=== PATIENT | male | born 1955 | race Caucasian/White ===

== ENCOUNTER → 2020-07-26 10:30 | Outpatient (CLI) | payer MEDICARE, BC, SELFPAY ==
--- NOTE | 2020-07-26 | DI.RAD.S_ITS ---
PROCEDURE: XR LUMBAR SPINE 2-3V INDICATIONS: BACK PAIN TECHNIQUE: 3 views of the lumbar spine were acquired. COMPARISON: None. FINDINGS: Bones: 5 [id number] vertebrae are present. There is slightly levoscoliotic bony alignment centered at L 3 4. No vertebral body compression fractures. No suspicious bony lesions. Soft tissues: Overlying bowel gas pattern is normal. No suspicious soft tissue calcifications. IMPRESSION: Slight levoscoliosis, centered at L3-4. 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 No subluxation is associated. No compression fracture found. Dictated by: Julio Cochran M.D. on 07/26/2020 at 10:59 Approved by: Julio Cochran M.D. on 07/26/2020 at 11:00
--- NOTE | 2020-07-26 | DI.US.S_ITS ---
PROCEDURE: US ABDOMEN COMPLETE INDICATIONS: ELEVATED LFTS TECHNIQUE: Real-time scanning was performed of the abdominal and retroperitoneal organs, with image documentation. COMPARISON: None. FINDINGS: Liver: Liver is normal in size. Along the posterior aspect of the right liver, there is a nonvascular echogenic mass seen that measures up to 1.6 cm. The main portal vein demonstrates normal size at 14 mm and is patent. Gallbladder: No findings of gallstones or sludge are seen. The gallbladder wall is not thickened, measuring 3 mm or less. No specific pericholecystic fluid is seen. The sonographic Oliver sign is negative. Biliary ducts: Intrahepatic bile ducts are non-dilated. Extrahepatic bile duct caliber measures 6 mm. Normal is 6-7 mm or less in diameter, or 10 mm or less post-cholecystectomy. Pancreas: Visualized portions of the pancreas are sonographically normal. However, adjacent to the pancreas, just superior to the pancreatic head, there is a 15 x 11 x 20 mm hypoechoic nonvascular mass. Spleen: Spleen is normal in size and homogeneous in echotexture. Kidneys: Kidneys are normal in size and echotexture. Right kidney measures 10.2 cm long; left kidney measures 10.5 cm long. No hydronephrosis or nephrolithiasis. No solid masses. The renal cortex measures within normal limits for thickness. Aorta: Visualized aorta is normal in caliber at less than 3 cm. Iliacs: Proximal common iliac arteries are normal in caliber at less than 2.5 cm. IVC: Intrahepatic inferior vena cava is patent. Miscellaneous: No free abdominal fluid. IMPRESSION: Adjacent to the pancreas, there is a 2 cm hypoechoic mass seen. This may represent an enlarged lymph node versus a pancreatic head mass. When clinically appropriate, a dedicated pancreas protocol CT or MRI would be recommended (without and with contrast) for further evaluation (assuming that there is no contraindication). No significant liver abnormality is seen. A likely liver hemangioma can be seen. Attention should be paid to this focus on any future follow-up studies. The gallbladder demonstrates a normal sonographic appearance. No biliary dilatation is seen. Dictated by: Flavio Huff M.D. on 07/26/2020 at 12:13 Approved by: Flavio Huff M.D. on 07/26/2020 at 12:15
== END ==
PROVIDERS: PCP Family Medicine; Referring Provider Family Medicine; Visit Provider Family Medicine
DX: R79.89 Other specified abnormal findings of blood chemistry (principal); K86.9 Disease of pancreas, unspecified; R16.0 Hepatomegaly, not elsewhere classified; E53.8 Deficiency of other specified B group vitamins; M54.32 Sciatica, left side; M47.816 Spondylosis without myelopathy or radiculopathy, lumbar region; M47.817 Spondylosis without myelopathy or radiculopathy, lumbosacral region
CPT/HCPCS: 72100; 76700

== ENCOUNTER → 2020-08-10 09:07 | Outpatient (CLI) | payer MEDICARE, BC, SELFPAY ==
--- NOTE | 2020-08-10 | DI.MRI.S_ITS ---
PROCEDURE: MR ABDOMEN WO/W CON INDICATIONS: Other specified diseases of pancreas TECHNIQUE: Coronal HASTE, axial 2D FLASH in- and [id number]; axial breath-hold T2 FSE with fat saturation from the hepatic dome to the iliac crests. Oblique coronal thin-slice and radial thick slab HASTE through the biliary system. Dynamic axial VIBE during administration of contrast. Post-contrast coronal VIBE or 2D FLASH with fat saturation from the hepatic dome to the iliac crests. Optional diffusion weighted imaging and ADC may be performed. COMPARISON: [facility], [place], US ABDOMEN COMPLETE, 07/26/2020, 11:40. FINDINGS: Image quality: Excellent. Pancreas and biliary system: The pancreatic duct and pancreatic parenchyma at the head/uncinate process region appears normal and more peripherally within the left margin of the pancreatic duct no distension is identified. The common bile duct appears free of dilatation. The gallbladder appears normal and the biliary system appears free of calculus. Adjacent to the pancreatic head are several lymph nodes, well visualized on contrast-enhanced axial fat suppressed scanning. None of these are abnormally enlarged, with reference to the prominence of what appears to be a lymph node seen on prior ultrasound scanning 07/26/20. Solid organs: Liver is normal in size and enhancement. There are 2 small hepatic cysts noted, segment 4A subcapsular and segment 7 near the hepatic dome. Gallbladder is free of inflammation or calculus . Spleen is normal in size and enhancement. No adrenal nodules. Kidneys are normal in size and enhancement, without hydronephrosis. Nodes and vessels: No retroperitoneal or mesenteric adenopathy by size criteria. Aorta and inferior vena cava are normal in size. Bowel and peritoneum: Unenhanced bowel loops are normal in caliber throughout. No free fluid. Lung bases: No basal pleural effusions. Heart size is normal. Bones and soft tissues: No ventral hernias. Bone marrow is normal in overall signal. IMPRESSION: A pancreatic head mass is not identified and there is no sign of pancreatic or biliary ductal distension. Note is made of several normal size lymph nodes adjacent to the pancreatic head and contiguously at the lower aspect of the paula hepatis. None of these are suspicious in terms of either size or degree of contrast enhancement. The sonographic assessment that raised concern for enlarged lymph node provided excellent visualization of the area of concern. Therefore, follow-up ultrasound assessment in 3 -6 months of this same area as a targeted single organ evaluation is recommended to assess for resolution of the previously sonographically identified structure which presumably was a mildly inflamed lymph node. The current MR scanning allows clear demarcation of the pancreatic parenchyma which appears entirely normal. Dictated by: Julio Cochran M.D. on 08/10/2020 at 13:26 Approved by: Julio Cochran M.D. on 08/10/2020 at 13:41
== END ==
PROVIDERS: PCP Family Medicine; Referring Provider Family Medicine; Visit Provider Family Medicine
DX: K86.89 Other specified diseases of pancreas (principal); R16.0 Hepatomegaly, not elsewhere classified
CPT/HCPCS: 74183

== ENCOUNTER → 2020-12-06 09:34 | Outpatient (CLI) | payer MEDICARE, BC, SELFPAY ==
[2020-12-06 19:31] LABS: Alanine Aminotransferase 15 IU/L (<50); Albumin 4.1 g/dL (3.5-5.0); Albumin Globulin Ratio 1.3 (1.0-2.8); Alkaline Phosphatase 63 U/L (38-126); Aspartate Aminotransferase 21 IU/L (17-59); BUN Creatinine Ratio 25.6 (6-22); Bilirubin Total 0.4 mg/dL (0.2-1.3); Blood Urea Nitrogen 20 mg/dL (9-20); Calcium 9.5 mg/dL (8.4-10.2); Carbon Dioxide 26 mmol/L (22-32); Chloride 106 mmol/L (98-107); Estimated Glomerular Filt Rate > 60.0 mL/min (>60); Globulin 3.2 g/dL (1.7-4.1); Glucose 115 mg/dL (80-110); HEMOLYSIS 17 (0-50); Potassium 4.4 mmol/L (3.4-5.1); Sodium 140 mmol/L (137-145); Total Protein 7.3 g/dL (6.3-8.2)
== END ==
PROVIDERS: PCP Family Medicine
DX: B18.2 Chronic viral hepatitis C (principal)
CPT/HCPCS: 80053

== ENCOUNTER → 2021-01-06 11:39 | Outpatient (CLI) | payer MEDICARE, BC, SELFPAY ==
[2021-01-06 19:33] LABS: Alanine Aminotransferase 13 IU/L (<50); Albumin 4.3 g/dL (3.5-5.0); Albumin Globulin Ratio 1.3 (1.0-2.8); Alkaline Phosphatase 76 U/L (38-126); Aspartate Aminotransferase 21 IU/L (17-59); BUN Creatinine Ratio 17.4 (6-22); Bilirubin Total 0.5 mg/dL (0.2-1.3); Blood Urea Nitrogen 15 mg/dL (9-20); Calcium 9.7 mg/dL (8.4-10.2); Carbon Dioxide 28 mmol/L (22-32); Chloride 104 mmol/L (98-107); Estimated Glomerular Filt Rate > 60.0 mL/min (>60); Globulin 3.3 g/dL (1.7-4.1); Glucose 95 mg/dL (80-110); HEMOLYSIS 18 (0-50); Potassium 4.4 mmol/L (3.4-5.1); Sodium 139 mmol/L (137-145); Total Protein 7.6 g/dL (6.3-8.2)
[2021-01-06 20:07] LABS: Ferritin 107 ng/mL (18-464)
== END ==
PROVIDERS: PCP Family Medicine
DX: B18.2 Chronic viral hepatitis C (principal)
CPT/HCPCS: 80053; 82728

== ENCOUNTER → 2021-04-13 11:28 | Outpatient (CLI) | payer MEDICARE, BC, SELFPAY ==
[2021-04-13 20:02] LABS: Alanine Aminotransferase 12 IU/L (<50); Albumin 4.4 g/dL (3.5-5.0); Albumin Globulin Ratio 1.5 (1.0-2.8); Alkaline Phosphatase 69 U/L (38-126); Aspartate Aminotransferase 22 IU/L (17-59); Bilirubin Total 0.8 mg/dL (0.2-1.3); Bilirubin Unconjugated 0.5 mg/dL (0.0-1.1); HEMOLYSIS 40 (0-50); Total Protein 7.4 g/dL (6.3-8.2)
[2021-04-13 20:52] LABS: Hep C Virus Ab w/Reflex Quant REACTIVE s/c (NEGATIVE)
== END ==
PROVIDERS: PCP Family Medicine
DX: B18.2 Chronic viral hepatitis C (principal)
CPT/HCPCS: 80076; 86803; 87522

== ENCOUNTER → 2021-05-25 11:09 | Outpatient (CLI) | payer MEDICARE, BC, SELFPAY ==
[2021-05-27 05:45] LABS: Alpha Fetoprotein 2.4 ng/mL (0.0-8.3)
== END ==
PROVIDERS: PCP Family Medicine
DX: K74.00 Hepatic fibrosis, unspecified (principal)
CPT/HCPCS: 82105

== ENCOUNTER → 2021-11-22 12:13 | Outpatient (CLI) | payer MEDICARE, BC, SELFPAY ==
[2021-11-23 17:48] LABS: Hep C Virus Ab w/Reflex Quant REACTIVE s/c (NEGATIVE)
[2021-11-24 06:42] LABS: Alpha Fetoprotein 2.7 ng/mL (0.0-8.4)
== END ==
PROVIDERS: PCP Family Medicine
DX: B18.2 Chronic viral hepatitis C (principal)
CPT/HCPCS: 82105; 86803; 87522

== ENCOUNTER → 2021-12-29 08:27 | Outpatient (CLI) | payer MEDICARE, BC, SELFPAY ==
[2021-12-29 18:19] LABS: Add Manual Diff / Slide Review NO; Basophils Absolute Auto 0 /uL (0-100); Basophils Percent Auto 0.5 % (0-2); Eosinophils Absolute Auto 100 /uL (0-450); Eosinophils Percent Auto 1.6 % (2-4); Hematocrit 49.4 % (41-53); Hemoglobin 16.6 g/dL (13.5-17.5); Lymphocytes Absolute Auto 2800 /uL (1100-4500); Lymphocytes Percent Auto 31.6 % (25-40); Mean Corpuscular HGB Conc 33.6 % (30-36); Mean Corpuscular Hemoglobin 30.1 PG (26-34); Mean Corpuscular Volume 89.6 fL (80-100); Monocytes Absolute Auto 800 /uL (0-900); Monocytes Percent Auto 9.1 % (3-14); Neutrophils Absolute Auto 5000 /uL (1500-7000); Neutrophils Percent Auto 57.2 % (50-75); Platelet Count 180 X10^3/uL (150-400); Red Blood Cell Count 5.51 X10^6/uL (4.5-5.9); Red Cell Distribution Width 13.4 % (11.6-14.8); White Blood Cell Count 8.8 X10^3/uL (4.5-11.0)
[2021-12-29 18:30] LABS: Alanine Aminotransferase 11 IU/L (<50); Albumin 4.7 g/dL (3.5-5.0); Albumin Globulin Ratio 1.5 (1.0-2.8); Alkaline Phosphatase 80 U/L (38-126); Aspartate Aminotransferase 19 IU/L (17-59); BUN Creatinine Ratio 15.6 (6-22); Bilirubin Total 0.7 mg/dL (0.2-1.3); Blood Urea Nitrogen 14 mg/dL (9-20); Calcium 9.5 mg/dL (8.4-10.2); Carbon Dioxide 25 mmol/L (22-32); Chloride 105 mmol/L (98-107); Cholesterol 168 mg/dL (140-199); Estimated Glomerular Filt Rate > 60 mL/min (>60); Globulin 3.1 g/dL (1.7-4.1); Glucose 114 mg/dL (80-110); HDL Cholesterol 53 mg/dL (40-60); HEMOLYSIS < 15 (0-50); LDL Cholesterol Calculated 99 mg/dL (<100); Potassium 4.6 mmol/L (3.4-5.1); Sodium 140 mmol/L (137-145); Total Protein 7.8 g/dL (6.3-8.2); Triglycerides 80 mg/dL (35-150)
[2021-12-29 19:17] LABS: Vitamin B12 228 pg/mL (239-931)
[2021-12-30 06:54] LABS: Alpha Fetoprotein 2.5 ng/mL (0.0-8.4)
== END ==
PROVIDERS: PCP Family Medicine; Visit Provider Family Medicine
DX: I10 Essential (primary) hypertension (principal); E78.5 Hyperlipidemia, unspecified; B18.2 Chronic viral hepatitis C; E53.8 Deficiency of other specified B group vitamins
CPT/HCPCS: 80053; 80061; 82105; 82607; 85025

== ENCOUNTER → 2022-07-17 13:39 | Outpatient (CLI) | payer MEDICARE, OTHER, SELFPAY ==
[2022-07-17 19:27] LABS: Prostate Specific Antigen Scrn 0.565 ng/mL (0.1-4.0)
[2022-07-17 19:46] LABS: Vitamin B12 508 pg/mL (239-931)
== END ==
PROVIDERS: PCP Family Medicine; Visit Provider Physician Assistant
DX: Z12.5 Encounter for screening for malignant neoplasm of prostate (principal); E53.8 Deficiency of other specified B group vitamins
CPT/HCPCS: 82607; G0103